=== PATIENT | female | born 1935 ===

== ENCOUNTER 2020-11-25 10:52 | Outpatient (CLI) | payer OTHER ==
[~2020-11-25 10:52] MED LIST: DIOVAN320 MG; INDAPAMIDE1.25 MG; ULTRAM ER300 MG
== END 2020-11-25 10:57 | disposition home or self-care (01) ==
LOC: SONOGRAMA 10:52
PROVIDERS: ATTEND Pathology Anatomic Pathology & Clinical Pathology
DX: E04.8 Other specified nontoxic goiter (principal); E07.89 Other specified disorders of thyroid; E04.1 Nontoxic single thyroid nodule; D34 Benign neoplasm of thyroid gland